=== PATIENT | female | born 1965 | race Caucasian/White ===

== ENCOUNTER → 2016-09-07 | Outpatient (CLI) | payer MEDICARE ==
[~2016-09-07] MED LIST: ALLI60CA2 PO; ATOR40TA16 PO; ERGO1CAP10 PO; LEVE500T8 PO; LEVE750T8 PO; LEXA20TA PO; METF500T PO; MOBI15TA PO; OMEP40CA2 PO; SERO100T PO; TRAZ300T2 PO; VENTAER INH; VITA200013 PO; ZOFR4TAB PO
[2016-09-07 12:27] LABS: BICARBONATE 27.8 MEQ/L (21.0-32.0); POTASSIUM 3.8 MEQ/L (3.5-5.1)
[2016-09-07 12:30] LABS: HDL CHOLESTEROL 41.6 MG/DL (40.0-60.0)
== END ==
LOC: CLAB 11:28
DX: G40.901 Epilepsy, unspecified, not intractable, with status epilepticus (principal); E55.9 Vitamin D deficiency, unspecified; N18.3 Chronic kidney disease, stage 3 (moderate); E66.9 Obesity, unspecified
CPT/HCPCS: 36415; 80048; 80061; 80177; 82306

== ENCOUNTER → 2016-09-21 | Outpatient (CLI) | payer MEDICARE ==
[2016-09-21 16:51] LABS: HEMOGLOBIN A1a 0.9 %; HEMOGLOBIN Ao 85.1 %; HEMOGLOBIN LA1C 1.9 %; HEMOGLOBIN P3 3.7 %
== END ==
LOC: CLAB 08:24
PROVIDERS: ATTEND Internal Medicine Geriatric Medicine
DX: R73.09 Other abnormal glucose (principal)
CPT/HCPCS: 36415; 83036

== ENCOUNTER 2017-01-23 16:35 | Emergency (ER) | payer MEDICARE ==
[~2017-01-23] VITALS: Ht 165.1 cm; Wt 100.0 kg
[~2017-01-23 16:35] MED LIST changes: -ALLI60CA2 PO; -ERGO1CAP10 PO; -MOBI15TA PO; -SERO100T PO; -ZOFR4TAB PO
[2017-01-23 16:38] VITALS: BP 120/76; PULSE 68; RESP 20; TEMP 98.1; O2SAT 98
[2017-01-23] MEDS ORDERED: ASPIRIN 81 MG CHEW TAB PO ONE (18:00)
[2017-01-23] MEDS ORDERED: SODIUM CHLORID 0.9% 500 ML INJ 500 ML IV ONE (18:00)
[2017-01-23] MEDS ORDERED: LIDOCAINE VISCOUS 2% SOLN 15 ML UDC PO ONE (18:00)
[2017-01-23] MEDS ORDERED: PANTOPRAZOLE SODIUM 40 MG VIAL IVP ONE (18:00)
[2017-01-23] MEDS ORDERED: MORPHINE SULFATE 4 MG/ML INJ IV PUSH ONE (18:00)
[2017-01-23] MEDS ORDERED: SODIUM CHLORIDE 0.9% FLUSH 10 ML FLUSH IVF PRN (18:00)
[2017-01-23] MEDS ORDERED: ALUMINUM/MAGNESIUM/SIMETH 30 ML CUP PO ONE (18:00)
[2017-01-23 18:08] VITALS: BP 143/66; PULSE 67; RESP 18; O2SAT 100; O2SAT 99
--- NOTE | 2017-01-23 18:13 | PD ---
HPI Chief Complaint: Chest Pain Time Seen by Provider: 17:46 Travel History International Travel<30 days: No Contact w/Intl Traveler<30days: No Traveled to known affect area: No History of Present Illness HPI 51-year-old female presents to emergency Department with sudden onset substernal chest burning and pain with radiation to the left arm. Patient has a history of question cardiac issues with catheterization done approximately 10 years ago which was shown to be normal. Patient then had her gallbladder out for symptoms at that time. Patient currently denies fever, chills, but has some shortness of breath due to the pain. She has nausea but no vomiting. Patient denies abdominal pain per se. She has no urinary symptoms or diarrhea. Patient did take 2 baby aspirin previously today. She has no known drug allergies. PFSH Past Medical History Hx Anticoagulant Therapy: Yes (PT TOOK 2 ASPIRIN TODAY FOR PAIN TODAY ) Asthma: No Autoimmune Disease: No Blood Disorders: No Bipolar Disorder: Yes Anxiety: No Depression: No Heart Rhythm Problems: No Cancer: No Cardiac Catheterization: Yes Cardiovascular Problems: No High Cholesterol: No Chemotherapy: No Chest Pain: No Congestive Heart Failure: No COPD: No Cerebrovascular Accident: Yes (TIA 2012) Diabetes: Yes (TYPE II METFORMIN DAILY) Diminished Hearing: No Endocrine: No GERD: Yes Genitourinary: No Headaches: No Hypertension: Yes (hx of) Immune Disorder: Yes Musculoskeletal: No Neurologic: Yes Psychiatric: Yes (Bipolar) Reproductive: No Respiratory: Yes Migraines: Yes Myocardial Infarction: No Radiation Therapy: No Seizures: Yes (HX EPILEPSY) Sleep Apnea: Yes ?: Not Menopausal: Yes Tubal Ligation: Yes Past Surgical History Abdominal Surgery: No AICD: No Arteriovenous Shunt: No Cardiac Surgery: No Cholecystectomy: Yes Ear Surgery: No Endocrine Surgery: No Eye Surgery: No Genitourinary Surgery: No Gynecologic Surgery: No Insulin Pump: No Joint Replacement: No Oral Surgery: No Pacemaker: Yes Thoracic Surgery: No Other Surgery: Yes (CARPAL TUNNEL) Social History Alcohol Use: No Tobacco Use: Yes Substance Use: No Allergies-Medications (Allergen,Severity, Reaction): Coded Allergies: No Known Allergies (Verified , 01/23/17) Reported Meds & Prescriptions Reported Meds & Active Scripts Active Omeprazole 40 Mg Cap 40 Mg PO DAILY Zofran (Ondansetron HCl) 4 Mg Tab 4 Mg PO Q6HR PRN Metformin (Metformin HCl) 500 Mg Tab 500 Mg PO DAILY With a meal Atorvastatin (Atorvastatin Calcium) 40 Mg Tab 40 Mg PO HS Lexapro (Escitalopram Oxalate) 20 Mg Tab 20 Mg PO DAILY Vitamin D (Cholecalciferol) 2,000 Unit Cap 1 Cap PO DAILY Levetiracetam 500 Mg Tab 500 Mg PO DAILY Ventolin Hfa 18 GM Inh (Albuterol Sulfate) 90 Mcg/Act Aer 2 Puff INH Q4-6H PRN Reported Trazodone (Trazodone HCl) 300 Mg Tab 200 Mg PO HS Omeprazole 40 Mg Cap 40 Mg PO DAILY Levetiracetam 750 Mg Tab 750 Mg PO MORNING Review of Systems Except as stated in HPI: all other systems reviewed are Neg General / Constitutional: No: Fever Eyes: No: Visual changes HENT: No: Headaches Cardiovascular: Positive: Chest Pain or Discomfort, No: Palpitations, Irregular Rhythm, Tachycardia, Diaphoresis, Syncope, Dyspnea on exertion, Varicosities, Phlebitis, Claudication Respiratory: Positive: Shortness of Breath, No: Cough, Wheezing, Sneezing Gastrointestinal: Positive: Nausea, No: Vomiting, Diarrhea, Abdominal Pain Genitourinary: No: Dysuria Musculoskeletal: No: Pain Skin: No Rash Neurologic: No: Weakness Psychiatric: No: Depression Endocrine: No: Polydipsia Hematologic/Lymphatic: No: Easy Bruising Physical Exam Narrative GENERAL: Overweight female in mild to moderate distress. Patient is sitting up in bed pushing on her upper abdomen/lower chest. SKIN: Warm and dry. Normal color. Normal turgor. No diaphoresis. HEAD: Atraumatic. Normocephalic. EYES: Pupils equal and round. No scleral icterus. No injection or drainage. ENT: No nasal bleeding or discharge. Mucous membranes pink and moist. Pharynx is clear. Airway is patent. NECK: Trachea midline. No JVD. Supple and nontender. CARDIOVASCULAR: Regular rate and rhythm. No murmurs gallops or rubs. RESPIRATORY: No accessory muscle use. Clear to auscultation. Breath sounds equal bilaterally. GASTROINTESTINAL: Abdomen soft, mild to moderate epigastric tenderness, nondistended. Hepatic and splenic margins not palpable. No CVA tenderness. MUSCULOSKELETAL: Extremities without clubbing, cyanosis, or edema. No obvious deformities. NEUROLOGICAL: Awake and alert. No obvious cranial nerve deficits. Motor grossly within normal limits. Five out of 5 muscle strength in the arms and legs. Normal speech. PSYCHIATRIC: Appropriate mood and affect; insight and judgment normal. Data Data Last Documented VS Vital Signs Date Time Temp Pulse Resp B/P Pulse Ox O2 Delivery O2 Flow Rate FiO2 01/23/17 22:25 98.1 78 16 112/52 99 01/23/17 19:13 Room Air Orders Electrocardiogram (01/23/17 ) Ckmb (Isoenzyme) Profile (01/23/17 17:47) Complete Blood Count With Diff (01/23/17 17:47) Comprehensive Metabolic Panel (01/23/17 17:47) Magnesium (Mg) (01/23/17 17:47) Prothrombin Time / Inr (Pt) (01/23/17 17:47) Act Partial Throm Time (Ptt) (01/23/17 17:47) Troponin I (01/23/17 17:47) Lipase (01/23/17 17:47) Chest, Single Ap (01/23/17 17:47) Ecg Monitoring (01/23/17 17:47) Bilateral Bp Monitoring (01/23/17 17:47) Iv Access Insert/Monitor (01/23/17 17:47) Oximetry (01/23/17 17:47) Oxygen Administration (01/23/17 17:47) Aspirin Chew (Aspirin Chew) (01/23/17 18:00) Morphine Inj (Morphine Inj) (01/23/17 18:00) Sodium Chloride 0.9% Flush (Ns Flush) (01/23/17 18:00) Sodium Chlorid 0.9% 500 Ml Inj (Ns 500 M (01/23/17 18:00) NPO (01/23/17 17:47) Pantoprazole Inj (Protonix Inj) (01/23/17 18:00) Al-Mag Hy-Si 40-40-4 Mg/Ml Liq (Mag-Al P (01/23/17 18:00) Lidocaine 2% Viscous (Xylocaine 2% Visco (01/23/17 18:00) CKMB (01/23/17 18:16) CKMB% (01/23/17 18:16) Us Abdomen Gallbladder (01/23/17 19:47) Creatine Kinase (Cpk) (01/23/17 20:45) Ckmb (Isoenzyme) Profile (01/23/17 20:45) Troponin I (01/23/17 20:45) Ondansetron Inj (Zofran Inj) (01/23/17 22:00) CKMB (01/23/17 21:05) CKMB% (01/23/17 21:05) Labs Laboratory Tests Test 01/23/17 01/23/17 18:16 21:05 White Blood Count 10.6 TH/MM3 Red Blood Count 4.56 MIL/MM3 Hemoglobin 13.3 GM/DL Hematocrit 40.6 % Mean Corpuscular Volume 89.0 FL Mean Corpuscular Hemoglobin 29.2 PG Mean Corpuscular Hemoglobin 32.8 % Concent Red Cell Distribution Width 14.2 % Platelet Count 264 TH/MM3 Mean Platelet Volume 8.9 FL Neutrophils (%) (Auto) 75.9 % Lymphocytes (%) (Auto) 14.8 % Monocytes (%) (Auto) 7.8 % Eosinophils (%) (Auto) 1.0 % Basophils (%) (Auto) 0.5 % Neutrophils # (Auto) 8.0 TH/MM3 Lymphocytes # (Auto) 1.6 TH/MM3 Monocytes # (Auto) 0.8 TH/MM3 Eosinophils # (Auto) 0.1 TH/MM3 Basophils # (Auto) 0.1 TH/MM3 CBC Comment DIFF FINAL Differential Comment Prothrombin Time 11.3 SEC Prothromb Time International 1.0 RATIO Ratio Activated Partial 26.1 SEC Thromboplast Time Sodium Level 141 MEQ/L Potassium Level 3.6 MEQ/L Chloride Level 106 MEQ/L Carbon Dioxide Level 29.5 MEQ/L Anion Gap 6 MEQ/L Blood Urea Nitrogen 6 MG/DL Creatinine 1.07 MG/DL Estimat Glomerular Filtration 54 ML/MIN Rate Random Glucose 104 MG/DL Calcium Level 9.1 MG/DL Magnesium Level 1.9 MG/DL Total Bilirubin 0.9 MG/DL Aspartate Amino Transf 239 U/L (AST/SGOT) Alanine Aminotransferase 121 U/L (ALT/SGPT) Alkaline Phosphatase 476 U/L Total Creatine Kinase 313 U/L 291 U/L Creatine Kinase MB 0.8 NG/ML 0.5 NG/ML Creatine Kinase MB % 0.3 % 0.2 % Troponin I LESS THAN 0.02 LESS THAN 0.02 NG/ML NG/ML Total Protein 7.4 GM/DL Albumin 4.1 GM/DL Lipase 143 U/L MDM Medical Decision Making Medical Screen Exam Complete: Yes Emergency Medical Condition: Yes Medical Record Reviewed: Yes Differential Diagnosis Epigastric tenderness. Cardiac syndrome. NE. Renal colic. Hepatic colic. Pancreatitis. Narrative Course Patient is uncomfortable but appears medically stable at time of exam. EKG was performed in triage and is reviewed showing no significant changes compared to previous. This is reviewed with Dr. Parra. Labs ordered including CBC, CMP, PT PTT and INR, lipase, urinalysis, cardiac panel. Chest x-ray is ordered. IV access is obtained and the patient is given 4 mg Zofran IV as well as 4 mg morphine IV. Patient is given an additional 81 mg of aspirin by mouth. Patient is given 40 mg pantoprazole IV as well as GI cocktail by mouth. Chest x-ray shows no acute findings per radiologist. Patient states her pain was much improved after the GI cocktail and Zofran and morphine. CBC is unremarkable. 1900 hrs. patient reports pain is now less than 1. Care of the Patient is turned over to Malcolm Seay PA-C for final Disposition. Scripts Omeprazole 40 Mg Cap40 Mg PO DAILY #30 CAP Ref 0 Prov:Trev Parra MD 01/23/17 Ondansetron (Zofran)4 Mg Tab4 Mg PO Q6HR PRN (NAUSEA OR VOMITING) #6 TAB Prov:Trev Parra MD 01/23/17 Disposition: 01 DISCHARGE HOME Condition: Stable Tomas Guerra Jan 23, 2017 18:12
--- NOTE | 2017-01-23 18:32 | RADRPT ---
EXAM DATE/TIME: 01/23/2017 17:54 [facility] COMPARISON: No previous studies available for comparison. INDICATIONS : Left side chest pain running into left arm. MEDICAL HISTORY : None. SURGICAL HISTORY : None. ENCOUNTER: Initial ACUITY: 1 day PAIN SCORE: 8/10 LOCATION: Bilateral cranial FINDINGS: A single view of the chest demonstrates the lungs to be symmetrically aerated without evidence of mas s, infiltrate or effusion. The cardiac silhouette is borderline in size. Osseous structures are int act. CONCLUSION: No acute cardiopulmonary disease. Swapnil Turpin MD on January 23, 2017 at 18:29 Board Certified Radiologist. This report was verified electronically.
[2017-01-23 18:41] LABS: BASOPHIL # 0.1 TH/MM3 (0-0.2); BASOPHIL % 0.5 % (0.0-2.0); EOSINOPHIL # 0.1 TH/MM3 (0-0.4); HEMATOCRIT 40.6 % (35.0-46.0); HEMO FLAGS DIFF FINAL; LYMPH % 14.8 % (9.0-44.0); LYMPHOCYTE # 1.6 TH/MM3 (1.0-4.8); MEAN CORPUSCULAR HEMOGLOBIN 29.2 PG (27.0-34.0); MEAN CORPUSCULAR HGB CONC 32.8 % (32.0-36.0); MONO % 7.8 % (0.0-8.0); NEUT % 75.9 % (16.0-70.0); PLATELET COUNT 264 TH/MM3 (150-450); RED BLOOD COUNT 4.56 MIL/MM3 (4.00-5.30); RED CELL DISTRIBUTION WIDTH 14.2 % (11.6-17.2); WHITE BLOOD COUNT 10.6 TH/MM3 (4.0-11.0)
[2017-01-23 18:56] LABS: APTT (PATIENT) 26.1 SEC (24.3-30.1); PROTHROMBIN TIME - PATIENT 11.3 SEC (9.8-11.6)
[2017-01-23 19:07] LABS: ANION GAP 6 MEQ/L (5-15); AST (GOT) 239 U/L (15-37); BICARBONATE 29.5 MEQ/L (21.0-32.0); BLOOD UREA NITROGEN 6 MG/DL (7-18); CHLORIDE 106 MEQ/L (98-107); GLOMERULAR FILTRATION RATE 54 ML/MIN (>89); MAGNESIUM 1.9 MG/DL (1.5-2.5); POTASSIUM 3.6 MEQ/L (3.5-5.1); SODIUM (NA) 141 MEQ/L (136-145)
[2017-01-23 19:11] VITALS: BP 113/58; PULSE 60; RESP 18; O2SAT 98
[2017-01-23 19:12] LABS: ALKALINE PHOSPHATASE 476 U/L (45-117); ALT (GPT) 121 U/L (10-53); CREATINE KINASE 313 U/L (26-192); TOTAL BILIRUBIN ADULT 0.9 MG/DL (0.2-1.0)
[2017-01-23 19:24] LABS: CKMB 0.8 NG/ML (0.5-3.6)
[2017-01-23] MEDS ORDERED: ONDANSETRON HCL 4 MG/2 ML VIAL IV PUSH ONE (22:00)
[2017-01-23 22:03] LABS: CREATINE KINASE 291 U/L (26-192)
--- NOTE | 2017-01-23 22:04 | RADRPT ---
EXAM DATE/TIME: 01/23/2017 21:10 [facility] COMPARISON: No previous studies available for comparison. INDICATIONS : Right upper quadrant pain. MEDICAL HISTORY : Gastroesophageal reflux disease. Hypertension. Transient ischemic attack. Seizures. Migraines. Anti coagulant therapy, Aspirin. Hyperlipidemia. Sleep apnea. Diabetes. Bipolar disorder. SURGICAL HISTORY : Cholecystectomy. Tubal ligation. Pacemaker. Carpal tunnel surgery. ENCOUNTER: Initial ACUITY: 1 day PAIN SCORE: 4/10 LOCATION: Right upper quadrant MEASUREMENTS: LIVER: 16.4 cm length COMMON DUCT: 8 mm RIGHT KIDNEY: 12.4 x 5.8 x 4.5 cm FINDINGS: LIVER: Diffusely increased parenchymal echogenicity typical of hepatic steatosis. No focal hepatic lesions s een. No intrahepatic artery distention demonstrated. COMMON DUCT: No intraluminal mass or stone visualized. GALLBLADDER: Previous cholecystectomy. PANCREAS: The visualized portions are within normal limits. RIGHT KIDNEY: No evidence of hydronephrosis, stone, or mass. CONCLUSION: 1. Enlarged and fatty infiltrated liver. 2. Previous cholecystectomy. 3. Common bile duct measures mildly prominent but generally what would be expected after cholecystect rj. Quentin Rios MD on January 23, 2017 at 21:59 Board Certified Radiologist. This report was verified electronically.
[2017-01-23] MEDS ORDERED: ZOFR4TAB PO (22:11)
[2017-01-23] MEDS ORDERED: OMEP40CA2 PO (22:12)
[2017-01-23 22:15] LABS: CKMB 0.5 NG/ML (0.5-3.6)
[2017-01-23 22:16] VITALS: RESP 15
--- NOTE | 2017-01-23 22:18 | PD ---
Physical Exam Date Seen by Provider: Jan 23, 2017 Time Seen by Provider: 22:13 Narrative GENERAL: This is a well-nourished, well-developed patient, in no apparent distress. SKIN: No rashes, ecchymoses or lesions. Warm and dry. HEAD: Atraumatic. Normocephalic. EYES: PERRL, EOMI, no discharge or injection. No scleral icterus. EARS: Clear NOSE: Nasal turbinates appear normal. THROAT: Mucosa pink and moist. Airway patent. NECK: Trachea midline. supple, moves head freely. LUNGS: Clear to auscultation. CV: Regular in rhythm. ABDOMEN: Soft nontender. No guarding or rebound. No epigastric tenderness. No Nayak sign. EXT: No clubbing cyanosis or edema. Data Data Last Documented VS Vital Signs Date Time Temp Pulse Resp B/P Pulse Ox O2 Delivery O2 Flow Rate FiO2 01/23/17 19:13 60 18 99 Room Air 01/23/17 19:11 113/58 01/23/17 16:38 98.1 Orders Electrocardiogram (01/23/17 ) Ckmb (Isoenzyme) Profile (01/23/17 17:47) Complete Blood Count With Diff (01/23/17 17:47) Comprehensive Metabolic Panel (01/23/17 17:47) Magnesium (Mg) (01/23/17 17:47) Prothrombin Time / Inr (Pt) (01/23/17 17:47) Act Partial Throm Time (Ptt) (01/23/17 17:47) Troponin I (01/23/17 17:47) Lipase (01/23/17 17:47) Chest, Single Ap (01/23/17 17:47) Ecg Monitoring (01/23/17 17:47) Bilateral Bp Monitoring (01/23/17 17:47) Iv Access Insert/Monitor (01/23/17 17:47) Oximetry (01/23/17 17:47) Oxygen Administration (01/23/17 17:47) Aspirin Chew (Aspirin Chew) (01/23/17 18:00) Morphine Inj (Morphine Inj) (01/23/17 18:00) Sodium Chloride 0.9% Flush (Ns Flush) (01/23/17 18:00) Sodium Chlorid 0.9% 500 Ml Inj (Ns 500 M (01/23/17 18:00) NPO (01/23/17 17:47) Pantoprazole Inj (Protonix Inj) (01/23/17 18:00) Al-Mag Hy-Si 40-40-4 Mg/Ml Liq (Mag-Al P (01/23/17 18:00) Lidocaine 2% Viscous (Xylocaine 2% Visco (01/23/17 18:00) CKMB (01/23/17 18:16) CKMB% (01/23/17 18:16) Us Abdomen Gallbladder (01/23/17 19:47) Creatine Kinase (Cpk) (01/23/17 20:45) Ckmb (Isoenzyme) Profile (01/23/17 20:45) Troponin I (01/23/17 20:45) Ondansetron Inj (Zofran Inj) (01/23/17 22:00) CKMB (01/23/17 21:05) CKMB% (01/23/17 21:05) Labs Laboratory Tests Test 01/23/17 01/23/17 18:16 21:05 White Blood Count 10.6 TH/MM3 Red Blood Count 4.56 MIL/MM3 Hemoglobin 13.3 GM/DL Hematocrit 40.6 % Mean Corpuscular Volume 89.0 FL Mean Corpuscular Hemoglobin 29.2 PG Mean Corpuscular Hemoglobin 32.8 % Concent Red Cell Distribution Width 14.2 % Platelet Count 264 TH/MM3 Mean Platelet Volume 8.9 FL Neutrophils (%) (Auto) 75.9 % Lymphocytes (%) (Auto) 14.8 % Monocytes (%) (Auto) 7.8 % Eosinophils (%) (Auto) 1.0 % Basophils (%) (Auto) 0.5 % Neutrophils # (Auto) 8.0 TH/MM3 Lymphocytes # (Auto) 1.6 TH/MM3 Monocytes # (Auto) 0.8 TH/MM3 Eosinophils # (Auto) 0.1 TH/MM3 Basophils # (Auto) 0.1 TH/MM3 CBC Comment DIFF FINAL Differential Comment Prothrombin Time 11.3 SEC Prothromb Time International 1.0 RATIO Ratio Activated Partial 26.1 SEC Thromboplast Time Sodium Level 141 MEQ/L Potassium Level 3.6 MEQ/L Chloride Level 106 MEQ/L Carbon Dioxide Level 29.5 MEQ/L Anion Gap 6 MEQ/L Blood Urea Nitrogen 6 MG/DL Creatinine 1.07 MG/DL Estimat Glomerular Filtration 54 ML/MIN Rate Random Glucose 104 MG/DL Calcium Level 9.1 MG/DL Magnesium Level 1.9 MG/DL Total Bilirubin 0.9 MG/DL Aspartate Amino Transf 239 U/L (AST/SGOT) Alanine Aminotransferase 121 U/L (ALT/SGPT) Alkaline Phosphatase 476 U/L Total Creatine Kinase 313 U/L 291 U/L Creatine Kinase MB 0.8 NG/ML Creatine Kinase MB % 0.3 % Troponin I LESS THAN 0.02 LESS THAN 0.02 NG/ML NG/ML Total Protein 7.4 GM/DL Albumin 4.1 GM/DL Lipase 143 U/L [facility] Medical Record Reviewed: Yes Supervised Visit with JUVENTINO: Yes Interpretation(s) Ultrasound gallbladder: Fatty infiltrates of the liver, status post cholecystectomy, high range of normal CBD size but no evidence of obstruction. Last 24 hours Impressions Chest X-Ray 01/23/17 [id number] Signed Impressions: Service Date/Time: Monday, January 23, 2017 17:54 - CONCLUSION: No acute cardiopulmonary disease. Swapnil Turpin MD Laboratory Tests Test 01/23/17 01/23/17 18:16 21:05 White Blood Count 10.6 TH/MM3 Red Blood Count 4.56 MIL/MM3 Hemoglobin 13.3 GM/DL Hematocrit 40.6 % Mean Corpuscular Volume 89.0 FL Mean Corpuscular Hemoglobin 29.2 PG Mean Corpuscular Hemoglobin 32.8 % Concent Red Cell Distribution Width 14.2 % Platelet Count 264 TH/MM3 Mean Platelet Volume 8.9 FL Neutrophils (%) (Auto) 75.9 % Lymphocytes (%) (Auto) 14.8 % Monocytes (%) (Auto) 7.8 % Eosinophils (%) (Auto) 1.0 % Basophils (%) (Auto) 0.5 % Neutrophils # (Auto) 8.0 TH/MM3 Lymphocytes # (Auto) 1.6 TH/MM3 Monocytes # (Auto) 0.8 TH/MM3 Eosinophils # (Auto) 0.1 TH/MM3 Basophils # (Auto) 0.1 TH/MM3 CBC Comment DIFF FINAL Differential Comment Prothrombin Time 11.3 SEC Prothromb Time International 1.0 RATIO Ratio Activated Partial 26.1 SEC Thromboplast Time Sodium Level 141 MEQ/L Potassium Level 3.6 MEQ/L Chloride Level 106 MEQ/L Carbon Dioxide Level 29.5 MEQ/L Anion Gap 6 MEQ/L Blood Urea Nitrogen 6 MG/DL Creatinine 1.07 MG/DL Estimat Glomerular Filtration 54 ML/MIN Rate Random Glucose 104 MG/DL Calcium Level 9.1 MG/DL Magnesium Level 1.9 MG/DL Total Bilirubin 0.9 MG/DL Aspartate Amino Transf 239 U/L (AST/SGOT) Alanine Aminotransferase 121 U/L (ALT/SGPT) Alkaline Phosphatase 476 U/L Total Creatine Kinase 313 U/L 291 U/L Creatine Kinase MB 0.8 NG/ML Creatine Kinase MB % 0.3 % Troponin I LESS THAN 0.02 LESS THAN 0.02 NG/ML NG/ML Total Protein 7.4 GM/DL Albumin 4.1 GM/DL Lipase 143 U/L Differential Diagnosis Differential diagnoses: Acute coronary syndrome, STEMI, GERD, choledocholithiasis, pancreatitis, gastritis Narrative Course Patient's gallbladder ultrasound is negative for stone or obstruction. Repeat cardiac markers are negative. The patient is resting comfortable. She had been treated for some nausea earlier. The patient has declined admission to the chest pain center. She states that she has an appointment with her doctor next week and does not want to stay. The patient will be discharged with Zofran and omeprazole. This is atypical chest pain, abnormal liver function tests Diagnosis Primary Impression: Atypical chest pain Additional Impression: Abnormal liver function test Patient Instructions: Narcotic given in the ED, General Instructions Additional Instruction: Rest. Increase fluids. Avoid any greasy or fatty foods. Follow-up on your abnormal liver function tests with your doctor. Medications as directed. Call your doctor first thing in have an appointment on Wednesday for recheck. Return to the ER over the weekend if symptoms worsen or any problems develop. Med/Other Pt SpecificInfo: Prescription(s) given Scripts Omeprazole 40 Mg Cap40 Mg PO DAILY #30 CAP Ref 0 Prov:Trev Parra MD 01/23/17 Ondansetron (Zofran)4 Mg Tab4 Mg PO Q6HR PRN (NAUSEA OR VOMITING) #6 TAB Prov:Trve Parra MD 01/23/17 Disposition: 01 DISCHARGE HOME Condition: Stable Husam Jean-Baptiste Jan 23, 2017 22:17
[2017-01-23 22:25] VITALS: BP 112/52; TEMP 98.1
--- NOTE | 2017-01-24 12:25 | EKG ---
Date Performed: 01/23/2017 Time Performed: 16:56:36 PTAGE: 51 years EKG: Sinus rhythm BORDERLINE LEFT AXIS DEVIATION LOW QRS VOLTAGE IN PRECORDIAL LEADS NONSPECIFIC T-WAVE ABNORMALITY MANUELA RDERLINE ECG PREVIOUS TRACING : 06/04/2012 19.45 Compared to prior tracing no significant change DOCTOR: Erlin Abraham Interpretating Date/Time 01/24/2017 12:22:11
[2017-02-03] MEDS ORDERED: METF500T PO (09:31)
[2017-02-03] MEDS ORDERED: VENTAER INH (09:31)
[2017-02-03] MEDS ORDERED: ATOR40TA16 PO (09:31)
== END 2017-01-23 22:29 | disposition home or self-care (01) ==
LOC: NEPD 16:35
DX: R07.89 Other chest pain (principal); K21.9 Gastro-esophageal reflux disease without esophagitis; I10 Essential (primary) hypertension; G40.909 Epilepsy, unspecified, not intractable, without status epilepticus; G47.30 Sleep apnea, unspecified; F31.9 Bipolar disorder, unspecified; R06.02 Shortness of breath; R10.11 Right upper quadrant pain; E78.5 Hyperlipidemia, unspecified; K76.0 Fatty (change of) liver, not elsewhere classified; Z72.0 Tobacco use; Z86.73 Personal history of transient ischemic attack (TIA), and cerebral infarction without residual deficits
CPT/HCPCS: 71010; 76705; 80053; 82550; 82552; 83690; 83735; 84484; 85025; 85610; 85730; 93005; 96361; 96374; 96375; 99285; C9113; J2270; J2405; J7040

== ENCOUNTER → 2017-01-29 | Outpatient (CLI) | payer MEDICARE, MEDICAID ==
[~2017-01-29] MED LIST changes: +ZOFR4TAB PO
[2017-01-29 11:43] LABS: AUTOMATED NEUTROPHIL # 4.7 TH/MM3 (1.8-7.7); BASOPHIL # 0.1 TH/MM3 (0-0.2); BASOPHIL % 1.3 % (0.0-2.0); EOSINOPHIL # 0.2 TH/MM3 (0-0.4); EOSINOPHIL % 2.8 % (0.0-4.0); HEMATOCRIT 38.7 % (35.0-46.0); HEMO FLAGS DIFF FINAL; LYMPH % 28.2 % (9.0-44.0); LYMPHOCYTE # 2.2 TH/MM3 (1.0-4.8); MEAN CELL VOLUME 87.9 FL (80.0-100.0); MEAN CORPUSCULAR HEMOGLOBIN 30.1 PG (27.0-34.0); MEAN CORPUSCULAR HGB CONC 34.3 % (32.0-36.0); MONO % 6.2 % (0.0-8.0); NEUT % 61.5 % (16.0-70.0); PLATELET COUNT 274 TH/MM3 (150-450); RED CELL DISTRIBUTION WIDTH 14.3 % (11.6-17.2); WHITE BLOOD COUNT 7.7 TH/MM3 (4.0-11.0)
[2017-01-29 12:17] LABS: ANION GAP 7 MEQ/L (5-15); AST (GOT) 21 U/L (15-37); BICARBONATE 26.9 MEQ/L (21.0-32.0); BLOOD UREA NITROGEN 5 MG/DL (7-18); CHLORIDE 107 MEQ/L (98-107); GLOMERULAR FILTRATION RATE 57 ML/MIN (>89); GLUCOSE,FASTING 116 MG/DL (74-99); POTASSIUM 3.6 MEQ/L (3.5-5.1); SODIUM (NA) 141 MEQ/L (136-145)
[2017-01-29 12:28] LABS: ALKALINE PHOSPHATASE 215 U/L (45-117); ALT (GPT) 79 U/L (10-53); TOTAL BILIRUBIN ADULT 0.3 MG/DL (0.2-1.0)
== END ==
LOC: CLAB 11:22
PROVIDERS: ATTEND Internal Medicine Geriatric Medicine
DX: R19.7 Diarrhea, unspecified (principal)
CPT/HCPCS: 36415; 80053; 84443; 85025

== ENCOUNTER → 2017-05-06 | Outpatient (CLI) | payer MEDICARE, MEDICAID ==
[~2017-05-06] MED LIST changes: +VOLT1GEL4 TOPICAL
[2017-05-06 09:28] LABS: ANION GAP 6 MEQ/L (5-15); AST (GOT) 19 U/L (15-37); BICARBONATE 28.7 MEQ/L (21.0-32.0); BLOOD UREA NITROGEN 6 MG/DL (7-18); CHLORIDE 107 MEQ/L (98-107); GLOMERULAR FILTRATION RATE 58 ML/MIN (>89); GLUCOSE,FASTING 96 MG/DL (74-99); POTASSIUM 3.6 MEQ/L (3.5-5.1); SODIUM (NA) 142 MEQ/L (136-145)
[2017-05-06 09:29] LABS: ALT (GPT) 27 U/L (10-53)
[2017-05-06 09:31] LABS: ALKALINE PHOSPHATASE 101 U/L (45-117); HDL CHOLESTEROL 30.9 MG/DL (40.0-60.0); LDL CHOLESTEROL 57 MG/DL (0-99); TOTAL BILIRUBIN ADULT 0.5 MG/DL (0.2-1.0)
[2017-05-06 16:23] LABS: HEMOGLOBIN A1a 1.2 %; HEMOGLOBIN Ao 84.7 %; HEMOGLOBIN P3 3.5 %
== END ==
LOC: CLAB 08:07
PROVIDERS: ATTEND Internal Medicine Geriatric Medicine
DX: E78.5 Hyperlipidemia, unspecified (principal); K76.0 Fatty (change of) liver, not elsewhere classified; R73.03 Prediabetes; Z79.899 Other long term (current) drug therapy
CPT/HCPCS: 36415; 80053; 80061; 83036

== ENCOUNTER → 2017-11-12 | Outpatient (CLI) | payer MEDICARE, MEDICAID ==
[~2017-11-12] MED LIST changes: -METF500T PO; +VOLT1GEL16 TOPICAL; -VOLT1GEL4 TOPICAL
[2017-11-12 09:46] LABS: ALBUMIN 3.7 GM/DL (3.4-5.0); AST (GOT) 17 U/L (15-37); BICARBONATE 24.7 MEQ/L (21.0-32.0); BLOOD UREA NITROGEN 11 MG/DL (7-18); CALCIUM 8.4 MG/DL (8.5-10.1); CHLORIDE 105 MEQ/L (98-107); CREATININE 1.04 MG/DL (0.50-1.00); GLOMERULAR FILTRATION RATE 55 ML/MIN (>89); GLUCOSE,FASTING 134 MG/DL (74-99); SODIUM (NA) 139 MEQ/L (136-145)
[2017-11-12 09:47] LABS: ALT (GPT) 25 U/L (10-53); CHOLESTEROL 172 MG/DL (120-200); TRIGLYCERIDES 398 MG/DL (42-150)
[2017-11-12 09:50] LABS: ALKALINE PHOSPHATASE 82 U/L (45-117); CHOLESTEROL/ HDL RATIO 5.62 RATIO; HDL CHOLESTEROL 30.6 MG/DL (40.0-60.0); LDL CHOLESTEROL 62 MG/DL (0-99); TOTAL BILIRUBIN ADULT 0.2 MG/DL (0.2-1.0); TOTAL PROTEIN 7.4 GM/DL (6.4-8.2)
== END ==
LOC: CLAB 08:12
PROVIDERS: ATTEND Family Medicine
DX: E78.5 Hyperlipidemia, unspecified (principal); R73.03 Prediabetes; Z68.36 Body mass index [BMI] 36.0-36.9, adult
CPT/HCPCS: 36415; 80053; 80061; 82306; 83036